=== PATIENT | female | born 1995 | race Caucasian/White ===

== ENCOUNTER 2022-05-23 14:00 | Emergency (ER) | payer OTHER ==
[2022-05-23 14:26] VITALS: BP 130/89; PULSE 78; RESP 16; TEMP 98.5; BMI 23.3
[2022-05-23] MEDS ORDERED: ACETAMINOPHEN 325 MG TABLET (FP) PO ONE (14:31)
[2022-05-23] MEDS ORDERED: ACETAMINOPHEN 325 MG TABLET (FP) ONE (14:37)
== END 2022-05-23 14:45 | disposition home or self-care (01) ==
LOC: FER 14:00
DX: S09.90XA Unspecified injury of head, initial encounter (principal); W21.02XA Struck by soccer ball, initial encounter
CPT/HCPCS: 99283-25